=== PATIENT | male | born 1975 | race Caucasian/White ===

== ENCOUNTER 2021-10-07 08:31 | Emergency (ER) | payer OTHER ==
[~2021-10-07] VITALS: Ht 185.4 cm; Wt 81.7 kg
--- NOTE | ~2021-10-07 | EMS ---
[address] [address] EMS Patient Care Report Name: JANEE RUDOLPH Room #: DEP ESTEFANY Diamond#: [id number] Admission: 10/07/21 Attend Phys: Discharge: 10/07/21 Date of : 71 Report #: [id number] THIS REPORT FOR: //name// Report Transmitted: 10/08/2021 10:08 EMS Care Summary [place], [place]/[facility] Incident [id number] @ 10/07/2021 07:57 Incident Location [address] [place] [address] Patient JANEE RDUOLPH Male, 46 Years 1975 Patient Address [address] [place] [id number] Patient History Alcohol Abuse, Patient Allergies No known allergies, Patient Medications Clonidine, Zofran, Remeron, Folic acid, Gabapentin, Chief Complaint CONFUSION Disposition Transported No Lights/[place] Dispatch Reason Convulsions/Seizure Transported To [facility] Narrative M41 DISPATCHED TO SEIZURES. M41 AOS AND FOUND A MALE PT SITTING IN A VAN WITH STAFF [facility]. STAFF STATE THAT THE PT HAD TWO, ONE MINUTE SEIZURES. PT HAS NO SEIZURE HX. PT JUST CHECKED INTO THE FACILITY YESTERDAY FOR ALCOHOLISM. PT [address] [address] EMS Patient Care Report Name: JANEE RUDOLPH Room #: DEP ER MiguelitoTere#: [id number] Admission: 10/07/21 Attend Phys: Discharge: 10/07/21 Date of : 71 Report #: [id number] STATES THAT IT HAS BEEN WELL OVER A DAY SINCE HE HAS HAD ANY ALCOHOL. PT IS CONFUSED AT THIS TIME. PT STATES THAT HE DOES NOT REMEMBER HAVING A SEIZURE. PT TOOK A FEW STEPS OUT OF THE BACK OF THE VAN AND ONTO THE COT. VITALS OBTAINED. BGA OBTAINED. M[address] [facility]. EN ROUTE PT REMAINED STABLE. REPORT GIVEN TO JOSE M MURO. SIGNATURES OBTAINED. TRANSFER OF CARE TOOK PLACE. M41 IN SERVICE. KIAH WIN TOE FORMER Initial Vitals @08:19P: 79,R: 18,BP: 166/105,Pain: 0/10,GCS: 15,CO: 4,SpO2: 97,Revised Trauma: 12, @08:14P: 78,R: 18,BP: 176/89,Pain: 0/10,GCS: 15,Glucose: 106,CO: 5,SpO2: 95,Revised Trauma: 12, Assessments @08:06MENTAL:Time Oriented,Confused,SKIN:HEENT:Head/Face: No Abnormalities,Neck/Airway: No Abnormalities,LUNG SOUNDS:General: No Abnormalities,ABDOMEN:General: No Abnormalities,PELVIS//GI:No Abnormalities,EXTREMITIES:Capillary Refill: Right Upper: < 2 Sec,Left Arm: No Abnormalities,Right Arm: No Abnormalities,Left Leg: No Abnormalities,Right Leg: No Abnormalities,PULSE:Radial: 2+ Normal,NEURO:Seizures, Impression Alcohol dependence with withdrawal Procedures @08:06 ALS Assessment Response: UnchangedSucceeded Timeline 07:56,Call Received 07:56,Dispatch Notified 07:57,Dispatched 07:59,En Route 08:05,On Scene 08:06,At Patient [facility] [address] [place] [address] EMS Patient Care Report Name: JANEE RUDOLPH [id number] Admission: 10/07/21 Attend Phys: Discharge: 10/07/21 Date of : 71 Report #: [id number] 08:06,ALS Assessment,Response: UnchangedSucceeded, 08:14,BP: 176/89 M,PULSE: 78,RR: 18 R,SPO2: 95 Ox,ETCO2: ,B,PAIN: 0,GCS: 15, 08:18,Depart Scene 08:19,BP: 166/105 M,PULSE: 79,RR: 18 R,SPO2: 97 Ox,ETCO2: ,BG: ,PAIN: 0,GCS: 15, 08:29,At Destination 08:35,Call Closed Disclaimer [email or web address] Copyright 2021 [facility] This EMS Care Summary contains data elements from the applicable legal record (which may be displayed differently). It is designed to provide pertinent information for the following purposes: continuity of care, clinical quality, and state data reporting. The complete legal record is available to ED staff and administrators of the receiving hospital in [employer]'s Patient Tracker. All data is provided "as is."
[2021-10-07] MEDS ORDERED: CHLORDIAZEPOXID25 M1 PO ×2 (10:02→14:25)
[2021-10-07 10:14] VITALS: BP 163/107
== END 2021-10-07 10:43 | disposition home or self-care (01) ==
LOC: ER 08:31
DX: G25.2 Other specified forms of tremor (principal); F10.129 Alcohol abuse with intoxication, unspecified